=== PATIENT | female | born 1950 | race Caucasian/White ===

== ENCOUNTER 2020-09-13 07:50 | Outpatient (REF) | payer MEDICARE, SELFPAY ==
[2020-09-13 11:10] LABS: Albumin Level 4.6 g/dL (3.5-5.0); Calcium 9.8 mg/dL (8.4-10.2)
[2020-09-14 21:22] LABS: Calcium (PTHI) 10.3 mg/dL (8.6-10.4); PTHI 26 pg/mL (14-64)
== END 2020-09-13 07:51 | disposition home or self-care (01) ==
LOC: HO.LAB 07:50
PROVIDERS: PCP Internal Medicine; Referring Provider Internal Medicine; Visit Provider Internal Medicine Endocrinology, Diabetes & Metabolism
DX: E11.42 Type 2 diabetes mellitus with diabetic polyneuropathy (principal); M81.0 Age-related osteoporosis without current pathological fracture; E78.5 Hyperlipidemia, unspecified; I10 Essential (primary) hypertension; E55.9 Vitamin D deficiency, unspecified; Z79.84 Long term (current) use of oral hypoglycemic drugs; Z79.899 Other long term (current) drug therapy
CPT/HCPCS: 82040; 82306; 82310; 83970; 99214

== ENCOUNTER 2020-09-27 08:50 | Outpatient (REF) | payer MEDICARE, SELFPAY ==
[2020-09-27 11:05] LABS: Creatinine, mg/dL 24.84
[2020-09-27 13:26] LABS: Creatinine, 24Hr Urine 0.5 G/Day (1.0-2.0); Total Volume 24 Hour Urine 2025 mL
[2020-09-29 19:46] LABS: Calcium, 24 Hr Urine 53 mg/24 h; Calcium/Creatinine Ratio 100 mg/g creat (30-275); Creatinine 24Hr Urine 0.53 g/24 h (0.50-2.15)
[2020-10-04 21:48] LABS: N-Telopeptide 20 (see note); NTXCreaRU 54 mg/dL (20-275)
== END 2020-09-27 08:51 | disposition home or self-care (01) ==
LOC: HO.10HDL 08:50
PROVIDERS: Visit Provider Internal Medicine Endocrinology, Diabetes & Metabolism
DX: M81.0 Age-related osteoporosis without current pathological fracture (principal)
CPT/HCPCS: 82340; 82523; 82570

== ENCOUNTER 2020-10-17 11:20 | Outpatient (REF) | payer MEDICARE, SELFPAY ==
--- NOTE | 2020-10-17 11:25 | US_ITS ---
EXAMINATION: ULTRASOUND EXTREMITY NONVASCULAR CLINICAL INFORMATION: Palpable lump right shoulder COMPARISON: None TECHNIQUE: Grayscale and color imaging of the soft tissues of the anterior right shoulder using a linear transducer. Contralateral imaging of the left shoulder. FINDINGS: No solid or cystic mass is seen. No lymphadenopathy is seen. The subcutaneous soft tissues on the right appear prominent compared to the left. US/US extremity nonvascular IMPRESSION: No mass evident by ultrasound. Prominent subcutaneous soft tissues on the right compared to the left.
== END 2020-10-17 11:21 | disposition home or self-care (01) ==
LOC: HO.HMGCX 11:20
PROVIDERS: PCP Internal Medicine; Visit Provider Nurse Practitioner Family
DX: R22.1 Localized swelling, mass and lump, neck (principal)
CPT/HCPCS: 76882

== ENCOUNTER → 2022-04-25 08:08 | Outpatient (BNVA) | payer MEDICARE, SELFPAY | PROVIDERS: PCP Internal Medicine; Visit Provider Internal Medicine Endocrinology, Diabetes & Metabolism | DX: M81.0 Age-related osteoporosis without current pathological fracture (principal) | CPT/HCPCS: 99212 ==

== ENCOUNTER → 2022-10-30 08:19 | Outpatient (BNVA) | payer MEDICARE, SELFPAY | PROVIDERS: PCP Internal Medicine; Visit Provider Internal Medicine Endocrinology, Diabetes & Metabolism | DX: M81.0 Age-related osteoporosis without current pathological fracture (principal) | CPT/HCPCS: 99212 ==